=== PATIENT | female | born 1955 | race Caucasian/White ===

== ENCOUNTER 2016-10-22 14:29 | Emergency (ER) | payer BC ==
--- NOTE | ~2016-10-22 | CR139 ---
[facility] A Service [facility] RADIOLOGY TEXT RESULTS PATIENT: MADDY HIGH LOCATION: SED : 57 UNIT #: [id number] AGE: [address]: Alexandria Avalos APRN SEX: F ORDER DR: [id number] [place] [id number] E MR#: [id number] Acc #: [id number] NAME: MADDY HIGH : 1955 SEX: F STUDY DATE/TIME: 10/22/2016 14:49 UNIT: SED ROOM: STUDY DESCRIPTION: CR Hand 2 Views Rt Attending Physician: Alexandria Avalos A.P.R.N. Ordering Physician: Alexandria Boggs A.P.R.N. Primary Care Physician: Chari Vee M.D. MEDICAL IMAGING REPORT This report is preliminary unless electronic signature is present. EXAM Right hand 10/22/2016 HISTORY 61-year-old female in the ED with third and fourth finger pain after fall on trampoline today prior to arrival. TECHNIQUE Limited two-view right hand series was obtained. FINDINGS The examination shows nondisplaced tiny avulsion fractures along the volar bases of the third and fourth middle phalanges. Mild soft tissue swelling. Remainder of the examination is negative. IMPRESSION Nondisplaced third and fourth middle phalanx fractures as noted. Dictated by... Misael Art M.D. THIS IS AN ELECTRONICALLY VERIFIED REPORT Misael Art M.D. at 10/22/2016 10:42 PM KIRSTEN/ana TD: 10/22/2016 20:41 JOB #: [id number] MEDICAL IMAGING REPORT [facility] A Service [facility] RADIOLOGY TEXT RESULTS PATIENT: MADDY HIGH LOCATION: SED : 57 UNIT #: [id number] AGE: [address]: Alexandria Avalos APRN SEX: F ORDER DR: Page 1 of 1
[~2016-10-22 14:29] MED LIST: HYDROCHLOROTH12.5 M1 PO; MULTIVITAMINS1 EAC3 PO
== END 2016-10-22 16:50 | disposition home or self-care (01) ==
LOC: SED 14:29
DX: S62.652A Nondisplaced fracture of middle phalanx of right middle finger, initial encounter for closed fracture (principal); S62.654A Nondisplaced fracture of middle phalanx of right ring finger, initial encounter for closed fracture; Z90.710 Acquired absence of both cervix and uterus; W17.89XA Other fall from one level to another, initial encounter; Y92.009 Unspecified place in unspecified non-institutional (private) residence as the place of occurrence of the external cause
CPT/HCPCS: 29130; 73120; 99283